=== PATIENT | male | born 1950 | race African-American/Black ===

== ENCOUNTER 2019-05-30 11:15 | Observation (INO) ==
[2019-05-30] MEDS ORDERED: NITROGLYCERIN 2% OINT 1 INCH/GM PACK TOP STA (11:35)
[2019-05-30] MEDS ORDERED: NITROGLYCERIN SL 0.4 MG TABLET SL PRN ×2 (11:35→14:07)
[2019-05-30] MEDS ORDERED: ASPIRIN 325 MG TABLET PO STA (11:35)
[2019-05-30 12:01] LABS: Basophils % 0.6 % (0.0-0.8); Eosinophils # 0.2 10*3/uL (0.0-0.87); Hematocrit 40.5 VOL% (42.0-52.0); Hemoglobin 13.7 GM/DL (14.0-18.0); Immature Granulocytes % 0.4 %; Immature Granulocytes Absolute 0.02 #; Lymphocytes # 1.4 10*3/uL (1.4-4.0); Lymphocytes % 27.3 % (21.2-54.2); Mean Corpuscular HGB Conc 33.8 GM/DL (32-36); Mean Corpuscular Volume 96.4 FL (87-102); Mean Platelet Volume 10.5 FL (9.6-12.0); Monocytes % 9.1 % (1.7-12.7); Neutrophils % 59.6 % (38.7-73.9); Platelet Count 179 T/CUMM (130-400); Red Cell Distribution Width 13.3 % (9.3-17.3); White Blood Count 5.1 T/CUMM (4-12)
[2019-05-30 12:23] LABS: Calcium 8.8 MG/DL (8.5-10.1); Osmolality,Calculated 286.7 MOS/KG (273-304)
[2019-05-30] MEDS ORDERED: ONDANSETRON 4 MG/2 ML VIAL IV PRN (14:02)
[2019-05-30] MEDS ORDERED: ACETAMINOPHEN 325 MG TABLET PO PRN (14:02)
[2019-05-30] MEDS ORDERED: MORPHINE 4 MG/1 ML VIAL IV PRN (14:02)
[2019-05-30] MEDS ORDERED: POTASSIUM CHLORIDE 20 MEQ TABLET PO PRN (14:02)
[2019-05-30] MEDS ORDERED: MAGNESIUM SULF RIDER 4 GM in PREMIX 1 EACH IV PRN (14:02)
[2019-05-30] MEDS ORDERED: ZALEPLON 5 MG CAPSULE PO PRN (14:02)
[2019-05-30] MEDS ORDERED: MAGNESIUM SULF RIDER 2 GM in PREMIX 1 EACH IV PRN (14:02)
[2019-05-30] MEDS ORDERED: SODIUM CHLORIDE 0.45% 1,000 ML IV SCH (14:30)
[2019-05-30] MEDS ORDERED: ENOXAPARIN 100 MG/ML SYRINGE SUBCUT SCH (15:00)
[2019-05-30] MEDS ORDERED: ALUMINUM/MAGNES/SIMETH MAX STR 30 ML UDCUP PO PRN (16:58)
[2019-05-30] MEDS: amLODIPine 5 MG TABLET PO SCH (16:59)
[2019-05-30] MEDS: CARVEDILOL 3.125 MG TABLET PO SCH (17:00)
[2019-05-30] MEDS: NITROGLYCERIN 2% OINT 1 INCH/GM PACK TOP SCH (17:35)
[2019-05-30] MEDS ORDERED: IMIPRAMINE 25 MG TABLET PO SCH (21:00)
[2019-05-30] MEDS: PANTOPRAZOLE 40 MG TABLET PO SCH (21:30)
[2019-05-31] MEDS: NITROGLYCERIN 2% OINT 1 INCH/GM PACK TOP SCH ×3 (02:06→12:12)
[2019-05-31 05:58] LABS: Calcium 8.6 MG/DL (8.5-10.1); Osmolality,Calculated 283.1 MOS/KG (273-304)
[2019-05-31 06:03] LABS: Risk Ratio 2.66; VLDL CHOLESTEROL 20.8 MG/DL
[2019-05-31 07:16] LABS: Troponin I < 0.015 NG/ML (0.00-0.045)
[2019-05-31] MEDS: amLODIPine 5 MG TABLET PO SCH (08:57)
[2019-05-31] MEDS: CARVEDILOL 3.125 MG TABLET PO SCH (08:58)
[2019-05-31] MEDS: PANTOPRAZOLE 40 MG TABLET PO SCH (08:58)
[2019-05-31] MEDS ORDERED: ASPIRIN EC 81 MG TABLET PO SCH (09:00)
[2019-05-31] MEDS ORDERED: METOPROLOL SUCCINATE XL 25 MG TABLET PO SCH (09:00)
[2019-05-31] MEDS ORDERED: ATORVASTATIN 80 MG TABLET PO SCH (09:00)
[2019-05-31] MEDS ORDERED: PANTOPRAZOLE 40 MG TABLET PO SCH (09:00)
[2019-05-31] MEDS ORDERED: ASPIRIN 325 MG TABLET PO SCH (09:00)
[2019-05-31] MEDS ORDERED: LISINOPRIL 5 MG TABLET PO SCH (09:00)
[2019-05-31] MEDS ORDERED: NICOTINE 21 MG/24 HR PATCH TRANSDERM SCH (09:00)
[2019-05-31 12:02] VITALS: BP 142/80
== END 2019-05-31 13:33 | disposition home or self-care (01) ==
LOC: N.EDINP 11:15 → N.ED 11:15 → N.EDINP 16:03 → N.TELEN 16:08
PROVIDERS: ADMIT Internal Medicine Cardiovascular Disease; ATTEND Internal Medicine Cardiovascular Disease

== ENCOUNTER 2021-10-26 04:02 | Inpatient (IN) ==
[2021-10-26] MEDS ORDERED: MIDAZOLAM 2 MG/2 ML VIAL ONE (04:23)
[2021-10-26] MEDS ORDERED: HYDROmorphone 2 MG/1 ML VIAL ONE (04:24)
[2021-10-26] MEDS ORDERED: HEPARIN 5,000 UNIT/1 ML VIAL ONE ×2 (04:42→04:57)
[2021-10-26] MEDS ORDERED: INFLUENZA VIRUS VACCINE 0.5 ML SYRINGE IM ONE (07:19)
[2021-10-26 07:49] LABS: CKMB % 8.1 %
[2021-10-26 08:13] LABS: High Sensitive Troponin I* 26811.2 ng/L (0-78)
[2021-10-26] MEDS: TICAGRELOR 90 MG TABLET PO SCH ×2 (09:05→20:29)
[2021-10-26] MEDS: ASPIRIN EC 81 MG TABLET PO SCH (09:05)
[2021-10-26 09:13] LABS: Basophils % 0.5 % (0.0-0.8); Eosinophils # 0.1 10*3/uL (0.0-0.87); Eosinophils % 1.3 % (0.00-10.9); Hematocrit 44.6 VOL% (42.0-52.0); Immature Granulocytes % 0.3 %; Immature Granulocytes Absolute 0.02 #; Lymphocytes # 1.4 10*3/uL (1.4-4.0); Lymphocytes % 22.2 % (21.2-54.2); Mean Corpuscular HGB Conc 33.6 GM/DL (32-36); Mean Corpuscular Volume 96.3 FL (87-102); Monocytes % 5.6 % (1.7-12.7); Neutrophils % 70.1 % (38.7-73.9); Platelet Count 182 T/CUMM (130-400); Red Blood Count 4.63 MC/CUMM (3.8-5.5); Red Cell Distribution Width 13.4 % (9.3-17.3); White Blood Count 6.1 T/CUMM (4-12)
[2021-10-26 09:26] LABS: Albumin 3.5 G/DL (3.4-5.0); Bilirubin,Total 0.6 MG/DL (0.20-1.00); Calcium 8.7 MG/DL (8.5-10.1); Osmolality,Calculated 277.7 MOS/KG (273-304); Potassium 4.2 MMOL/L (3.5-5.1); Total Protein 6.7 G/DL (6.4-8.2)
[2021-10-26] MEDS: carvediloL 3.125 MG TABLET PO SCH ×2 (09:27→20:29)
[2021-10-26] MEDS ORDERED: amLODIPine 5 MG TABLET PO ONE ×2 (09:52→21:00)
[2021-10-26] MEDS ORDERED: hydrALAZINE 20 MG/1 ML VIAL IV PRN (14:36)
[2021-10-26] MEDS ORDERED: ROSUVASTATIN 20 MG TABLET PO SCH (21:00)
[2021-10-27 04:28] LABS: Basophils % 0.5 % (0.0-0.8); Eosinophils # 0.2 10*3/uL (0.0-0.87); Eosinophils % 2.7 % (0.00-10.9); Hematocrit 46.7 VOL% (42.0-52.0); Hemoglobin 15.9 GM/DL (14.0-18.0); Immature Granulocytes % 0.4 %; Immature Granulocytes Absolute 0.03 #; Lymphocytes # 1.5 10*3/uL (1.4-4.0); Lymphocytes % 17.9 % (21.2-54.2); Mean Corpuscular Volume 95.7 FL (87-102); Mean Platelet Volume 10.4 FL (9.6-12.0); Monocytes % 9.2 % (1.7-12.7); Neutrophils % 69.3 % (38.7-73.9); Platelet Count 191 T/CUMM (130-400); Red Blood Count 4.88 MC/CUMM (3.8-5.5); Red Cell Distribution Width 13.2 % (9.3-17.3); White Blood Count 8.1 T/CUMM (4-12)
[2021-10-27 05:02] LABS: CKMB % 5.1 %; Calcium 9.2 MG/DL (8.5-10.1); Osmolality,Calculated 274.8 MOS/KG (273-304); Potassium 3.8 MMOL/L (3.5-5.1)
[2021-10-27 05:04] LABS: High Sensitive Troponin I* 15395.4 ng/L (0-78)
[2021-10-27 05:04] LABS: VLDL Cholesterol 21.8 MG/DL
[2021-10-27] MEDS: ASPIRIN EC 81 MG TABLET PO SCH (08:52)
[2021-10-27] MEDS: TICAGRELOR 90 MG TABLET PO SCH ×2 (08:52→21:55)
[2021-10-27] MEDS: carvediloL 3.125 MG TABLET PO SCH ×2 (08:52→21:55)
[2021-10-27] MEDS: SACUBITRIL/VALSARTAN 49-51 MG TABLET PO SCH ×2 (08:52→21:55)
[2021-10-27] MEDS ORDERED: NITROGLYCERIN SL 0.4 MG TABLET SL PRN (09:35)
[2021-10-27] MEDS ORDERED: ONDANSETRON 4 MG/2 ML VIAL IV PRN (11:20)
[2021-10-27] MEDS ORDERED: ZALEPLON 5 MG CAPSULE PO PRN (11:20)
[2021-10-27] MEDS ORDERED: BISACODYL 5 MG TABLET PO PRN (11:20)
[2021-10-27] MEDS ORDERED: ACETAMINOPHEN 325 MG TABLET PO PRN (11:20)
[2021-10-27] MEDS: amLODIPine 5 MG TABLET PO SCH (15:19)
[2021-10-27] MEDS: ROSUVASTATIN 20 MG TABLET PO SCH (21:55)
[2021-10-28 05:51] LABS: Basophils % 0.4 % (0.0-0.8); Eosinophils # 0.3 10*3/uL (0.0-0.87); Eosinophils % 3.2 % (0.00-10.9); Hematocrit 48.9 VOL% (42.0-52.0); Hemoglobin 16.6 GM/DL (14.0-18.0); Immature Granulocytes % 0.4 %; Immature Granulocytes Absolute 0.03 #; Lymphocytes # 1.8 10*3/uL (1.4-4.0); Lymphocytes % 22.6 % (21.2-54.2); Mean Corpuscular HGB Conc 33.9 GM/DL (32-36); Mean Corpuscular Volume 95.1 FL (87-102); Mean Platelet Volume 10.1 FL (9.6-12.0); Monocytes % 8.7 % (1.7-12.7); Neutrophils % 64.7 % (38.7-73.9); Platelet Count 210 T/CUMM (130-400); Red Blood Count 5.14 MC/CUMM (3.8-5.5); White Blood Count 7.7 T/CUMM (4-12)
[2021-10-28 06:13] LABS: Calcium 8.9 MG/DL (8.5-10.1); Osmolality,Calculated 276.7 MOS/KG (273-304); Potassium 3.9 MMOL/L (3.5-5.1)
[2021-10-28] MEDS: carvediloL 3.125 MG TABLET PO SCH ×2 (09:01→21:35)
[2021-10-28] MEDS: SACUBITRIL/VALSARTAN 49-51 MG TABLET PO SCH ×2 (09:01→21:35)
[2021-10-28] MEDS: PANTOPRAZOLE 40 MG TABLET PO SCH (09:01)
[2021-10-28] MEDS: TICAGRELOR 90 MG TABLET PO SCH ×2 (09:01→21:34)
[2021-10-28] MEDS: ASPIRIN EC 81 MG TABLET PO SCH (09:02)
[2021-10-28] MEDS: amLODIPine 5 MG TABLET PO SCH (09:02)
[2021-10-28] MEDS ORDERED: amLODIPine 5 MG TABLET PO ONE (10:06)
[2021-10-28] MEDS: ROSUVASTATIN 20 MG TABLET PO SCH (21:35)
[2021-10-29 04:59] LABS: Basophils % 0.4 % (0.0-0.8); Eosinophils # 0.3 10*3/uL (0.0-0.87); Eosinophils % 3.6 % (0.00-10.9); Hematocrit 48.2 VOL% (42.0-52.0); Hemoglobin 16.2 GM/DL (14.0-18.0); Immature Granulocytes % 0.3 %; Immature Granulocytes Absolute 0.02 #; Lymphocytes # 1.8 10*3/uL (1.4-4.0); Lymphocytes % 24.2 % (21.2-54.2); Mean Corpuscular HGB Conc 33.6 GM/DL (32-36); Mean Platelet Volume 10.5 FL (9.6-12.0); Neutrophils % 62.5 % (38.7-73.9); Platelet Count 218 T/CUMM (130-400); Red Blood Count 5.02 MC/CUMM (3.8-5.5); Red Cell Distribution Width 13.1 % (9.3-17.3); White Blood Count 7.5 T/CUMM (4-12)
[2021-10-29 05:32] LABS: Calcium 9.4 MG/DL (8.5-10.1); Osmolality,Calculated 278.7 MOS/KG (273-304); Potassium 3.7 MMOL/L (3.5-5.1)
[2021-10-29] MEDS ORDERED: amLODIPine 5 MG TABLET PO SCH (09:00)
[2021-10-29] MEDS: SACUBITRIL/VALSARTAN 49-51 MG TABLET PO SCH (09:26)
[2021-10-29] MEDS: carvediloL 3.125 MG TABLET PO SCH (09:26)
[2021-10-29] MEDS: PANTOPRAZOLE 40 MG TABLET PO SCH (09:26)
[2021-10-29] MEDS: ASPIRIN EC 81 MG TABLET PO SCH (09:27)
[2021-10-29] MEDS: TICAGRELOR 90 MG TABLET PO SCH (09:27)
[2021-10-29 11:48] VITALS: BP 120/86
== END 2021-10-29 12:38 | disposition home or self-care (01) | DRG 247 ==
LOC: N.CL 04:02 → N.ICU 04:22 → N.TELEN 10-27 15:46
PROVIDERS: ADMIT Internal Medicine Cardiovascular Disease; ATTEND Internal Medicine Cardiovascular Disease
PROC: CLCCHCL (ICD-10-PCS; 2021-10-26 04:45)